=== PATIENT | female | born 1940 | race Caucasian/White ===

== ENCOUNTER → 2017-05-13 | Outpatient (CLI) | payer MEDICARE, OTHER ==
[2017-05-13 11:05] LABS: ALANINE AMINOTRANSFERASE 21 U/L (9-52); ALKALINE PHOSPHATASE 77 U/L (38-126); ANION GAP 12 (5-19); ASPARTATE AMINO TRANSFERASE 29 U/L (14-36); BILIRUBIN,DIRECT 0.5 mg/dL (0.0-0.4); BILIRUBIN,TOTAL 0.6 mg/dL (0.2-1.3); BLOOD UREA NITROGEN 21 mg/dL (7-20); CALCIUM 9.8 mg/dL (8.4-10.2); CARBON DIOXIDE 24 mmol/L (22-30); CHLORIDE 106 mmol/L (98-107); CHOLESTEROL 139.37 mg/dL (0-200); CREATININE RESULT 0.94 mg/dL (0.52-1.25); Direct HDL 59 mg/dL (>40); GLUCOSE 81 mg/dL (75-110); POTASSIUM 4.7 mmol/L (3.6-5.0); SODIUM 141.8 mmol/L (137-145); TOTAL PROTEIN 7.4 g/dL (6.3-8.2); TRIGLYCERIDES 59 mg/dL (<150)
[2017-05-13 11:16] LABS: DIRECT LDL 57 mg/dL (<100)
== END ==
LOC: OD 09:26
PROVIDERS: ATTEND Internal Medicine
DX: I25.10 Atherosclerotic heart disease of native coronary artery without angina pectoris (principal); R06.00 Dyspnea, unspecified; Z98.61 Coronary angioplasty status; I34.0 Nonrheumatic mitral (valve) insufficiency; E78.5 Hyperlipidemia, unspecified; I25.2 Old myocardial infarction; M19.90 Unspecified osteoarthritis, unspecified site; Z79.899 Other long term (current) drug therapy
CPT/HCPCS: 36415; 80053; 80061

== ENCOUNTER 2017-09-28 11:30 | Observation (INO) | payer MEDICARE, OTHER ==
[2017-09-28] MEDS ORDERED: DIPH/PERTUSS(ACELL)/TETANUS VAC/PF 0.5 ML SYR (>=10YO) IM ONE (11:47)
--- NOTE | 2017-09-28 11:49 | ER Document Report ---
ED Medical Screen (RME) - General Chief Complaint: Leg Injury Stated Complaint: LACERATION TO LOWER RIGHT LEG Time Seen by Provider: 09/28/17 11:47 Mode of Arrival: Wheelchair Information source: Patient TRAVEL OUTSIDE OF THE [place] IN LAST 30 DAYS: No - HPI Patient complains to provider of: cut leg Onset: Just prior to arrival - pt. with laceration to R leg on vent in her home just OUTSIDE CUTTER HAND. Tet- OOD - Related Data Allergies/Adverse Reactions: cyclosporine [From Restasis] Allergy (Verified 09/28/17 11:42) BURNING latex [Latex] Adverse Reaction (Unknown, Verified 09/28/17 11:42) Generalized Itching sulfamethoxazole [From Bactrim] Adverse Reaction (Unknown, Verified 09/28/17 11: 42) Swelling of the Eyes trimethoprim [From Bactrim] Adverse Reaction (Unknown, Verified 09/28/17 11:42) Swelling of the Eyes Past Medical History - Social History Chew tobacco use (# tins/day): No Frequency of alcohol use: None Drug Abuse: None - Past Medical History Cardiac Medical History: Reports: Hx Heart Attack - STENT X1 PLACED IN 2005/ MILD [place] APPROX 15YRS AGO, Hx Hypertension - MEDICATED Pulmonary Medical History: Denies: Hx Asthma Neurological Medical History: Denies: Hx Cerebrovascular Accident, Hx Seizures Renal/ Medical History: Denies: Hx Peritoneal Dialysis GI Medical History: Denies: Hx Hepatitis, Hx Hiatal Hernia, Hx Ulcer Infectious Medical History: Denies: Hx Hepatitis Past Surgical History: Reports: Hx Hysterectomy, Hx Mastectomy - RT BREAST WITH RESTRICTIONS TO RT SIDE. Denies: Hx Open Heart Surgery, Hx Pacemaker Physical Exam - Vital signs Vitals: Temp Pulse Resp BP Pulse Ox 98.9 F 63 16 167/68 H 98 09/28/17 11:36 09/28/17 11:36 09/28/17 11:36 09/28/17 11:36 09/28/17 11:36 Course - Vital Signs Vital signs: Temp Pulse Resp BP Pulse Ox 98.9 F 63 16 167/68 H 98 09/28/17 11:36 09/28/17 11:36 09/28/17 11:36 09/28/17 11:36 09/28/17 11:36
[2017-09-28] MEDS ORDERED: LIDOCAINE 1% INJ-PF (10 MG/ML) 30 ML SDV INFIL ONE (12:18)
--- NOTE | 2017-09-28 12:35 | RADIOLOGY REPORT (SQ) ---
EXAM DESCRIPTION: TIBIA FIBULA RIGHT COMPLETED DATE/TIME: 09/28/2017 12:20 pm REASON FOR STUDY: fall injury COMPARISON: None. NUMBER OF VIEWS: Two views. TECHNIQUE: Two radiographic images acquired of the right tibia and fibula to include the knee and an kle in at least one projection. LIMITATIONS: None. FINDINGS: MINERALIZATION: Normal. BONES: No acute fracture or dislocation. Knee prosthesis. No worrisome bone lesions. SOFT TISSUES: Soft tissue injury. No foreign body. OTHER: No other significant finding. IMPRESSION: SOFT TISSUE INJURY. NO RADIOPAQUE FOREIGN BODY. KNEE PROSTHESIS. NO ACUTE BONY FINDIN GS. TECHNICAL DOCUMENTATION: JOB ID: [id number] [employer]- All Rights Reserved
[2017-09-28] MEDS ORDERED: LIDOCAINE 1% INJ-PF (10 MG/ML) 30 ML SDV ONE (12:46)
[2017-09-28] MEDS ORDERED: HYDROCODONE/ACETAMINOPHEN 5-325 MG TABLET PO ONE (12:47)
[2017-09-28] MEDS ORDERED: ONDANSETRON HCL 8 MG TABLET PO ONE (12:47)
--- NOTE | 2017-09-28 12:47 | ER Document Report ---
ED General - General Chief Complaint: Leg Injury Stated Complaint: LACERATION TO LOWER RIGHT LEG Time Seen by Provider: 09/28/17 11:47 Mode of Arrival: Wheelchair Information source: Patient Notes: 77-year-old female presents with complaints of laceration to the right leg just prior to arrival. Patient notes she fell through a vent and lacerated her leg. pt able to ambulate, tetanus is not up to date TRAVEL OUTSIDE OF THE [place] IN LAST 30 DAYS: No - HPI Onset: Just prior to arrival Onset/Duration: Sudden Quality of pain: Sharp Severity: Moderate Pain Level: 4 Associated symptoms: Other Exacerbated by: Movement, Walking Relieved by: Denies Similar symptoms previously: No Recently seen / treated by doctor: No - Related Data Allergies/Adverse Reactions: cyclosporine [From Restasis] Allergy (Verified 09/28/17 11:42) BURNING latex [Latex] Adverse Reaction (Unknown, Verified 09/28/17 11:42) Generalized Itching sulfamethoxazole [From Bactrim] Adverse Reaction (Unknown, Verified 09/28/17 11: 42) Swelling of the Eyes trimethoprim [From Bactrim] Adverse Reaction (Unknown, Verified 09/28/17 11:42) Swelling of the Eyes Past Medical History - General Information source: Patient - Social History Smoking Status: Never Smoker Cigarette use (# per day): No Chew tobacco use (# tins/day): No Smoking Education Provided: No Frequency of alcohol use: None Drug Abuse: None Family History: Reviewed & Not Pertinent Patient has suicidal ideation: No Patient has homicidal ideation: No - Past Medical History Cardiac Medical History: Reports: Hx Heart Attack - STENT X1 PLACED IN 2005/ MILD [place] APPROX 15YRS AGO, Hx Hypertension - MEDICATED Pulmonary Medical History: Denies: Hx Asthma Neurological Medical History: Denies: Hx Cerebrovascular Accident, Hx Seizures Renal/ Medical History: Denies: Hx Peritoneal Dialysis GI Medical History: Denies: Hx Hepatitis, Hx Hiatal Hernia, Hx Ulcer Infectious Medical History: Denies: Hx Hepatitis Past Surgical History: Reports: Hx Hysterectomy, Hx Mastectomy - RT BREAST WITH RESTRICTIONS TO RT SIDE. Denies: Hx Open Heart Surgery, Hx Pacemaker Review of Systems - Review of Systems Notes: REVIEW OF SYSTEMS: CONSTITUTIONAL : Denies fever, chills, or sweats. Denies recent illness. EENT: Denies eye, ear, throat, or mouth pain or symptoms. Denies nasal or sinus congestion or discharge. Denies throat, tongue, or mouth swelling or difficulty swallowing. CARDIOVASCULAR: Denies chest pain. Denies palpitations or racing or irregular heart beat. Denies ankle edema. RESPIRATORY: Denies cough, cold, or chest congestion. Denies shortness of breath, difficulty breathing, or wheezing. GASTROINTESTINAL: Denies abdominal pain or distention. Denies nausea, vomiting , or diarrhea. Denies blood in vomitus, stools, or per rectum. Denies black, tarry stools. Denies constipation. GENITOURINARY: Denies difficulty urinating, painful urination, burning, frequency, blood in urine, or discharge. FEMALE GENITOURINARY: Denies vaginal bleeding, heavy or abnormal periods, irregular periods. Denies vaginal discharge or odor. MUSCULOSKELETAL: laceration leg SKIN: Denies rash, lesions or sores. HEMATOLOGIC : Denies easy bruising or bleeding. LYMPHATIC: Denies swollen, enlarged glands. NEUROLOGICAL: Denies confusion or altered mental status. Denies passing out or loss of consciousness. Denies dizziness or lightheadedness. Denies headache. Denies weakness or paralysis or loss of use of either side. Denies problems with gait or speech. Denies sensory loss, numbness, or tingling. Denies seizures. PSYCHIATRIC: Denies anxiety or stress. Denies depression, suicidal ideation, or homicidal ideation. ALL OTHER SYSTEMS REVIEWED AND NEGATIVE. PHYSICAL EXAMINATION: GENERAL: Well-appearing, well-nourished and in no acute distress. HEAD: Atraumatic, normocephalic. EYES: Pupils equal round and reactive to light, extraocular movements intact, conjunctiva are normal. ENT: Nares patent, oropharynx clear without exudates. Moist mucous membranes. NECK: Normal range of motion, supple without lymphadenopathy LUNGS: Breath sounds clear to auscultation bilaterally and equal. No wheezes rales or rhonchi. HEART: Regular rate and rhythm without murmurs ABDOMEN: Soft, nontender, nondistended abdomen. No guarding, no rebound. No masses appreciated. Female : deferred Musculoskeletal: Normal range of motion, no pitting or edema. No cyanosis. NEUROLOGICAL: Cranial nerves grossly intact. Normal speech, normal gait. Normal sensory, motor exams PSYCH: Normal mood, normal affect. SKIN: extensive laceration right thigh approximately 20 cm in length including fascia muscle small arterial bleed Dictation was performed using [employer] voice recognition software Physical Exam - Vital signs Vitals: Temp Pulse Resp BP Pulse Ox 98.9 F 63 16 167/68 H 98 09/28/17 11:36 09/28/17 11:36 09/28/17 11:36 09/28/17 11:36 09/28/17 11:36 Course - Re-evaluation Re-evalutation: 09/28/17 12:47 Dr John sorenson 09/28/17 15:38 Area was anesthetized by myself, I cleansed it but the laceration was extensive , I did contact the surgeon who will take the patient to the operating room for further repair. I believe this is appropriate given how large it is - Vital Signs Vital signs: Temp Pulse Resp BP Pulse Ox 98.3 F 70 18 134/79 H 97 09/28/17 13:29 09/28/17 13:29 09/28/17 14:02 09/28/17 14:02 09/28/17 14:02 - Laboratory Result Diagrams: 09/28/17 13:55 09/28/17 13:55 Laboratory results interpreted by me: 09/28/17 09/28/17 13:55 13:55 RBC 3.39 L Hgb 10.2 L Hct 30.8 L RDW 14.4 H Sodium 136.0 L BUN 26 H Creatinine 1.42 H Est GFR ( Amer) 43 L Est GFR (Non-Af Amer) 36 L - Diagnostic Test Radiology reviewed: Image reviewed, Reports reviewed Discharge - Discharge Clinical Impression: Leg laceration Qualifiers: Encounter type: initial encounter Laterality: right Qualified Code(s): S81.811A - Laceration without foreign body, right lower leg, initial encounter Condition: Stable Disposition: SAME DAY SURGERY Admitting Provider: Surgicalist Unit Admitted: Surgical Floor
[2017-09-28] MEDS ORDERED: CEFAZOLIN 2 GM/D5W RTU 2 GM/50 ML RTUPB IV ONE (13:33)
[2017-09-28] MEDS ORDERED: NORMAL SALINE 1000 ML 1,000 ML IV ONE (13:34)
[2017-09-28 14:21] LABS: ABSOLUTE EOSINOPHILS # (AUTO) 0.4 10^3/uL (0.0-0.6); ABSOLUTE LYMPHOCYTES (AUTO) 1.4 10^3/uL (0.5-4.7); ABSOLUTE MONOCYTES (AUTO) 0.8 10^3/uL (0.1-1.4); ABSOLUTE NEUT (AUTO) 5.9 10^3/uL (1.7-8.2); BASOPHILS % (AUTO) 0.5 % (0-2); EOSINOPHILS % (AUTO) 4.2 % (0-6); HEMATOCRIT 30.8 % (36.0-47.0); HEMOGLOBIN 10.2 g/dL (12.0-15.5); LYMPHOCYTES % (AUTO) 16.2 % (13-45); MEAN CORPUSCULAR HEMOGLOBIN 30.2 pg (27.0-33.4); MEAN CORPUSCULAR HGB CONC 33.1 g/dL (32.0-36.0); MEAN CORPUSCULAR VOLUME 91 fl (80-97); MONOCYTES % (AUTO) 9.1 % (3-13); PLATELET COUNT 173 10^3/uL (150-450); RED BLOOD COUNT 3.39 10^6/uL (3.72-5.28); RED CELL DISTRIBUTION WIDTH 14.4 % (11.5-14.0); TOTAL CELLS COUNTED % (AUTO) 100 %; WHITE BLOOD COUNT 8.4 10^3/uL (4.0-10.5)
[2017-09-28 14:44] LABS: ALANINE AMINOTRANSFERASE 27 U/L (9-52); ALBUMIN 3.5 g/dL (3.5-5.0); ALKALINE PHOSPHATASE 74 U/L (38-126); ANION GAP 7 (5-19); ASPARTATE AMINO TRANSFERASE 26 U/L (14-36); BILIRUBIN,DIRECT 0.4 mg/dL (0.0-0.4); BILIRUBIN,TOTAL 0.4 mg/dL (0.2-1.3); BLOOD UREA NITROGEN 26 mg/dL (7-20); CALCIUM 9.4 mg/dL (8.4-10.2); CARBON DIOXIDE 25 mmol/L (22-30); CHLORIDE 104 mmol/L (98-107); GLUCOSE 96 mg/dL (75-110); TOTAL PROTEIN 6.5 g/dL (6.3-8.2)
[2017-09-28] MEDS ORDERED: MIDAZOLAM 2 MG/2 ML INJ ONE (15:52)
[2017-09-28] MEDS ORDERED: BUPIVACAINE HCL 0.25 % INJ/PF (2.5 MG/1 ML) 30 ML VIAL ONE (15:52)
[2017-09-28] MEDS ORDERED: PROPOFOL INJ 200 MG/20 ML VIAL IV ONE (15:52)
[2017-09-28] MEDS ORDERED: DIPHENHYDRAMINE HCL 50 MG/ML VIAL IV PRN (16:25)
[2017-09-28] MEDS ORDERED: PROMETHAZINE HCL INJ 25 MG/1 ML VIAL IV PRN (16:25)
[2017-09-28] MEDS ORDERED: MORPHINE SULFATE 10 MG/ML INJ IV PRN (16:25)
[2017-09-28] MEDS ORDERED: MEPERIDINE HCL/PF INJ 25 MG/1 ML DISP.SYRIN IV PRN (16:25)
[2017-09-28] MEDS ORDERED: FENTANYL CITRATE INJ/PF 100 MCG/2 ML AMPUL IV PRN ×2 (16:25)
[2017-09-28] MEDS: FENTANYL CITRATE INJ/PF 100 MCG/2 ML AMPUL IV PRN ×2 (17:20→17:30)
[2017-09-28] MEDS ORDERED: FENTANYL CITRATE INJ/PF 100 MCG/2 ML AMPUL ONE (17:22)
[2017-09-28] MEDS ORDERED: MEPERIDINE HCL/PF INJ 25 MG/1 ML DISP.SYRIN ONE (17:34)
[2017-09-28] MEDS ORDERED: DOCUSATE SODIUM 100 MG CAPSULE PO PRN (17:58)
[2017-09-28] MEDS ORDERED: (PENDING PHARMACY ID) (Polyvinyl Alcohol/Povidone/Pf [Refresh Classic Eye Drops] 1 DROP) OU PRN (17:58)
--- NOTE | 2017-09-28 18:08 | OPERATIVE REPORT E ---
Operative Report NAME: MARCO A CATALAN : 1940 AGE: 77Y DATE OF SURGERY: 09/28/2017 ROOM: ED20 PREOPERATIVE DIAGNOSIS: FALL WITH LARGE LACERATION OF THE LEFT LEG, CONTAMINATED POSSIBLY, AND DEEP, UP TO THE FASCIAL LEVEL, WITH DEGLOVING OF THE SKIN. POSTOPERATIVE DIAGNOSIS: FALL WITH LARGE LACERATION OF THE LEFT LEG, DEEP, UP TO THE FASCIAL LEVEL, WITH DEGLOVING OF THE SKIN AND CONTAMINATION OF THE 20-CM WOUND OF THE POSTEROLATERAL ASPECT OF THE MIDDLE PART OF THE LEFT LEG, BUT NO BONY INJURY. OPERATION: Large wound debridement, left leg, along with washout, and layered closure of the large laceration of the left middle leg. It was a 2-layered closure. SURGEON: SHAKIRA GALICIA M.D. ANESTHESIA: Monitored anesthesia care. ESTIMATED BLOOD LOSS: Less than 10 mL. SPECIMENS: None. HISTORY/INDICATIONS: As described. PROCEDURE: Patient was placed in the supine position. The lower extremity on the left side was cleaned, prepped and draped for a sterile field. After that, the nonviable adipose tissue/necrotic tissue was debrided up to the fascial level as needed. Two-thirds of the skin was viable. One-third or maybe 2 cm of the skin appeared to be more degloved. By using a Pulsevac with dilute Betadine solution, thoroughly washed and hemostasis secured. Then layered closure was done, initially with the fascial layer. The fascia was reapproximated with 2-0 Vicryl and then the deep subcutaneous layer with 2-0 Vicryl and 3-0 Vicryl interrupted skin closure. Only 2-cm part of the skin which was very cleaned out was degloved . Part of this area was left open. Dressings were applied. Patient tolerated procedure well and taken to recovery room in stable condition. DICTATING PHYSICIAN: SHAKIRA GALICIA M.D. [id number] PHY#: [id number] ID: [id number] JOB#: [id number] ACCT: [id number] cc:SHAKIRA GALIICA M.D. > [facility]
--- NOTE | 2017-09-28 18:14 | HISTORY AND PHYSICAL E ---
History and Physical NAME: MARCO A CATALAN : 1940 AGE: 77Y ADMITTED: 09/28/2017 ROOM: ED20 HISTORY OF PRESENT ILLNESS: This is a 77-year-old female patient presented to the emergency room with a history of fall and sustained a large laceration to the right leg anterolateral aspect. The patient came to the emergency room bleeding. The ER physician called me to evaluate the wound for management. The patient complains of some pain. PAST MEDICAL HISTORY: History of hypothyroidism, hypertension, hypercholesterolemia. SURGICAL HISTORY: No major surgeries in the past. REVIEW OF SYSTEMS: As per examination. PHYSICAL EXAMINATION: GENERAL: The patient is awake, alert, oriented. HEAD AND NECK: No lymphadenopathy, no masses. CHEST: Both lungs are clear to auscultation. CARDIOVASCULAR: Heart sounds are regular, no murmurs, no gallops. ABDOMEN: Soft, nontender, no masses palpable. EXTREMITIES: Right lower extremity; there is a large about a 20-25 cm laceration in the right anterolateral aspect of the right leg with some of the skin and also the laceration was extending up to the fascia level. There is minimal amount of bleeding from that area. Pedal pulses are palpable and she still has the sensations. IMAGING STUDIES: She had an x-ray done, so far no fractures were seen. IMPRESSION OVERALL: Large soft tissue injury of the right leg with some of the skin degloved and also a very deep laceration, possible contamination. PLAN: Start IV antibiotic and then take her to the operating room for wound debridement, wound wash, and a possible partial layered closure. DICTATING PHYSICIAN: SHAKIRA GALICIA M.D. [id number] PHY#: [id number] ID: [id number] JOB#: [id number] ACCT: [id number] cc:Kalen POSEY M.D. > [facility]
[2017-09-28] MEDS ORDERED: POLYVINYL ALCOHOL 1.4% OPH SOLN 15 ML OU PRN (18:16)
[2017-09-28] MEDS ORDERED: HYDROCODONE/ACETAMINOPHEN 5-325 MG TABLET PO PRN (18:18)
[2017-09-28] MEDS ORDERED: HYDROMORPHONE HCL INJ/PF 2 MG/ML AMPULE IV PRN (18:18)
[2017-09-28] MEDS: FAMOTIDINE 20 MG TABLET PO SCH (18:47)
[2017-09-28] MEDS: CALCIUM CARBONATE 250 MG/VITAMIN D3 125 UNIT TABLET PO SCH (18:47)
[2017-09-28] MEDS ORDERED: LOSARTAN POTASSIUM 50 MG TABLET PO SCH (22:00)
[2017-09-28] MEDS ORDERED: METOPROLOL SUCCINATE 50 MG TAB.SR.24H PO SCH (22:00)
[2017-09-28] MEDS ORDERED: SIMVASTATIN 40 MG TABLET PO SCH (22:00)
[2017-09-28] MEDS ORDERED: ASPIRIN 81 MG TABLET, ENT COATED PO SCH (22:00)
[2017-09-28] MEDS: CEFAZOLIN 2 GM/D5W RTU 2 GM/50 ML RTUPB IV SCH (23:24)
[2017-09-28] MEDS ORDERED: NORMAL SALINE 500 ML IV ONE (23:45)
[2017-09-29] MEDS: CEFAZOLIN 2 GM/D5W RTU 2 GM/50 ML RTUPB IV SCH ×2 (05:11→12:02)
[2017-09-29] MEDS ORDERED: LEVOTHYROXINE SODIUM 0.1 MG TABLET PO SCH (06:00)
[2017-09-29] MEDS ORDERED: ASPIRIN 81 MG TABLET, ENT COATED PO SCH (10:00)
[2017-09-29] MEDS ORDERED: (PENDING PHARMACY ID) (Telmisartan [Micardis 80 Mg Tablet] 80 MG) PO SCH (10:00)
[2017-09-29] MEDS ORDERED: LACTOBACILLUS ACIDOPHILUS 250 MG TAB PO SCH (10:00)
[2017-09-29] MEDS ORDERED: METOPROLOL SUCCINATE 50 MG TAB.SR.24H PO SCH (10:00)
[2017-09-29] MEDS ORDERED: LOSARTAN POTASSIUM 50 MG TABLET PO SCH (10:00)
[2017-09-29] MEDS ORDERED: LORATADINE 10 MG TABLET PO SCH (10:00)
[2017-09-29] MEDS ORDERED: MELOXICAM 15 MG TABLET PO SCH (10:00)
[2017-09-29] MEDS ORDERED: MULTIVITAMIN TABLET PO SCH (10:00)
[2017-09-29] MEDS: FAMOTIDINE 20 MG TABLET PO SCH (10:40)
[2017-09-29] MEDS: CALCIUM CARBONATE 250 MG/VITAMIN D3 125 UNIT TABLET PO SCH (10:41)
[2017-09-29 11:56] VITALS: BP 120/62
--- NOTE | 2017-09-29 12:48 | PDOC DISCHARGE SUMMARY ---
General - Admit/Disc Date/PCP Admission Date/Primary Care Provider: 09/28/17 18:30 MARNIE BYRNES MD Discharge Date: 09/29/17 - Discharge Diagnosis (1) Laceration of right leg excluding thigh Is this a current diagnosis for this admission?: Yes (2) Leg laceration Is this a current diagnosis for this admission?: Yes - Additional Information Resuscitation Status: Full Code Discharge Diet: As Tolerated, Regular Discharge Activity: Activity As Tolerated Home Medications: Aspirin [Adult Low Dose Aspirin EC] 81 mg PO DAILY 09/28/17 Calcium Carbonate/Vitamin D3 [Calcium 500 + Vit D Caplet] 1 tab PO BID 09/28/17 Docusate Sodium [Colace 100 mg Capsule] 100 mg PO BIDP PRN 09/28/17 Famotidine [Pepcid 20 mg Tablet] 20 mg PO BID 09/28/17 Immun Glob G(IgG)/Pro/Iga 0-50 [Hizentra 10 Gram/50 ml Vial] 0 gm SQ GUTIERREZ L.acidoph,Paracasei, B.lactis [Probiotic] 1 cap PO DAILY 09/28/17 Levothyroxine Sodium [Synthroid] 100 mcg PO Q6AM 09/28/17 Loratadine [Claritin 10 mg Tablet] 10 mg PO DAILY 09/28/17 Meloxicam [Mobic] 15 mg PO DAILY 09/28/17 Metoprolol Succinate [Toprol Xl 50 mg Tab.sr] 50 mg PO DAILY 09/28/17 Multivitamin [Daily Multiple Vitamin] 1 tab PO DAILY 09/28/17 Olopatadine HCl [Pataday] 1 drop OU DAILY 09/28/17 Polyvinyl Alcohol/Povidone/Pf [Refresh Classic Eye Drops] 1 drop OU Q4HP PRN 07/05 Simvastatin [Zocor 40 mg Tablet] 40 mg PO QHS 09/28/17 Telmisartan [Micardis 80 mg Tablet] 80 mg PO DAILY 09/28/17 History of Present Illness History of Present Illness: MARCO A CATALAN is a 77 year old female who was admitted yesterday to the surgicalist service following repair of a complex right leg laceration. She had fallen through a vent in the floor of their mobile and sustained the laceration with some degloving. She had a washout and suture repair of the laceration, which was about 20-25cm long, in the OR. Hospital Course Hospital Course: She had a washout and suture repair of the laceration, which was about 20-25cm long, in the OR. She is stable and is being discharged home. Physical Exam Vital Signs: Temp Pulse Resp BP Pulse Ox 98.0 F 69 16 120/62 97 09/29/17 11:53 09/29/17 11:53 09/29/17 11:53 09/29/17 11:53 09/29/17 11:53 Intake & Output 09/28/17 09/29/17 09/30/17 06:59 06:59 06:59 Intake Total 100 Balance 100 General appearance: PRESENT: no acute distress, well-developed, well-nourished Head exam: PRESENT: atraumatic, normocephalic Eye exam: PRESENT: conjunctiva pink, EOMI, PERRLA. ABSENT: scleral icterus Ear exam: PRESENT: normal external ear exam Neck exam: PRESENT: carotid bruit. ABSENT: JVD, lymphadenopathy, thyromegaly Respiratory exam: PRESENT: clear to auscultation juancarlos. ABSENT: rales, rhonchi, wheezes Cardiovascular exam: PRESENT: RRR. ABSENT: diastolic murmur, rubs, systolic murmur GI/Abdominal exam: PRESENT: normal bowel sounds, soft. ABSENT: distended, guarding, mass, organolmegaly, rebound, tenderness Extremities exam: PRESENT: other - Sutured laceration of the right leg with interrupted stitches. Laceration is about 20-25cm long and is curved at the inferior end posteriorly for about 5cm Neurological exam: PRESENT: alert, awake, oriented to person, oriented to place , oriented to time, oriented to situation, CN II-XII grossly intact. ABSENT: motor sensory deficit Psychiatric exam: PRESENT: appropriate affect, normal mood. ABSENT: homicidal ideation, suicidal ideation Results Impressions: Tibia/Fibula X-Ray 09/28/17 12:03 IMPRESSION: SOFT TISSUE INJURY. NO RADIOPAQUE FOREIGN BODY. KNEE PROSTHESIS. NO ACUTE BONY FINDINGS. Plan Discharge Plan: discharge home Time Spent: Less than 30 Minutes
== END 2017-09-29 15:49 | disposition home or self-care (01) ==
LOC: ER 11:30 → UNDOADMOB 14:41 → EH 14:41 → 2N 18:30 → EH 18:30
PROVIDERS: ATTEND Colon & Rectal Surgery
PROC: 0JQN0ZZ Repair Right Lower Leg Subcutaneous Tissue and Fascia, Open Approach (ICD-10-PCS; principal; 2017-09-28 16:00)
DX: S81.821A Laceration with foreign body, right lower leg, initial encounter (principal); W13.8XXA Fall from, out of or through other building or structure, initial encounter; Y92.029 Unspecified place in mobile home as the place of occurrence of the external cause; E03.9 Hypothyroidism, unspecified; I10 Essential (primary) hypertension; E78.00 Pure hypercholesterolemia, unspecified; Z79.82 Long term (current) use of aspirin; Z79.899 Other long term (current) drug therapy; Z23 Encounter for immunization; Z95.5 Presence of coronary angioplasty implant and graft
CPT/HCPCS: 99284; 90471; 36415; 85025; 80053; 73590; 90715; 12035; G0378 ×3; A9270 ×11; J2250; J3490; J3010; J2175; J7030; J7040; J2704; J0690 ×2; 00400; S0119

== ENCOUNTER → 2018-06-25 | Outpatient (CLI) | payer MEDICARE, OTHER ==
[2018-06-25 08:42] LABS: ABSOLUTE EOSINOPHILS # (AUTO) 0.4 10^3/uL (0.0-0.6); ABSOLUTE LYMPHOCYTES (AUTO) 1.3 10^3/uL (0.5-4.7); ABSOLUTE MONOCYTES (AUTO) 0.8 10^3/uL (0.1-1.4); ABSOLUTE NEUT (AUTO) 4.6 10^3/uL (1.7-8.2); BASOPHILS % (AUTO) 0.6 % (0-2); EOSINOPHILS % (AUTO) 6.1 % (0-6); HEMATOCRIT 34.5 % (36.0-47.0); HEMOGLOBIN 11.8 g/dL (12.0-15.5); LYMPHOCYTES % (AUTO) 18.5 % (13-45); MEAN CORPUSCULAR HEMOGLOBIN 30.6 pg (27.0-33.4); MEAN CORPUSCULAR HGB CONC 34.3 g/dL (32.0-36.0); MEAN CORPUSCULAR VOLUME 89 fl (80-97); PLATELET COUNT 185 10^3/uL (150-450); RED BLOOD COUNT 3.86 10^6/uL (3.72-5.28); RED CELL DISTRIBUTION WIDTH 14.9 % (11.5-14.0); SEGMENTED NEUTROPHILS % (AUTO) 63.8 % (42-78); TOTAL CELLS COUNTED % (AUTO) 100 %; WHITE BLOOD COUNT 7.1 10^3/uL (4.0-10.5)
[2018-06-25 09:07] LABS: BLOOD UREA NITROGEN 20 mg/dL (7-20); CALCIUM 9.8 mg/dL (8.4-10.2); GLUCOSE 97 mg/dL (75-110)
[2018-06-25 09:08] LABS: ALANINE AMINOTRANSFERASE 17 U/L (9-52); ALBUMIN 4.1 g/dL (3.5-5.0); ALKALINE PHOSPHATASE 82 U/L (38-126); ANION GAP 15 (5-19); ASPARTATE AMINO TRANSFERASE 25 U/L (14-36); BILIRUBIN,DIRECT 0.2 mg/dL (0.0-0.4); BILIRUBIN,TOTAL 0.5 mg/dL (0.2-1.3); C-REACTIVE PROTEIN 17.3 mg/L (<10.0); CARBON DIOXIDE 23 mmol/L (22-30); CHLORIDE 105 mmol/L (98-107); POTASSIUM 5.1 mmol/L (3.6-5.0); SODIUM 142.6 mmol/L (137-145); TOTAL PROTEIN 7.2 g/dL (6.3-8.2)
[2018-06-25 09:31] LABS: ERYTHROCYTE SEDIMENTATION RATE 78 mm/hr (0-30)
--- NOTE | 2018-06-25 13:16 | XCELERA REPORT ---
[address] [address] Lower Extremity Venous Evaluation Procedure: A bilateral duplex scan of the lower extremity veins was performed. The evaluation included responses to compression and other maneuvers with patient in the supine and standing positions to assess venous insufficiency. Right Sided Venous Evaluation Deep venous system evaluation shows patent veins with no obstruction or significant reflux identified. Saphena Femoral junction: no reflux. Femoral vein reflux: no reflux. Greater Saphenous vein, Proximal thigh: reflux: 3.1 seconds, 3.7 mm diameter. Greater Saphenous vein, Mid thigh: reflux: 1.6 seconds, 3.0 mm diameter. Greater Saphenous vein, Distal thigh: reflux: 0.7 seconds.3.9 mm. Greater Saphenous vein, Proximal below knee: reflux: no reflux . No significant Perforators identified. Left Sided Venous Evaluation Deep venous system evaluatiion shows patent veins with no obstruction or significant reflux identified. Sapheno Femoral junction: no reflux. Femoral vein reflux: no reflux. Greater Saphenous vein, Proximal thigh: reflux: no reflux. Greater Saphenous vein, Distal thigh: reflux: no reflux. Greater Saphenous vein, Proximal below knee: reflux: no reflux. No significant Perforators identified. Interpretation Summary No duplex evidence of DVT or obstruction in the bilateral lower extremities. Significant superficial reflux noted in the right Greater Saphenous vein. Normal otherwise. Unexpected as indicated ulceration in left calf. Name: MARCO A CATALAN Age: 78 yrs Gender: Female : 1940 Patient Status: Outpatient Patient Location: Study Date: 06/25/2018 09:45 AM Reason For Study: ULCER Ordering Physician: HAMLET TAI Performed By: Chase Freeman : HAMLET TAI > Hu Gandhi
--- NOTE | 2018-06-25 16:52 | XCELERA REPORT ---
[address] [address] Lower Extremity Arterial Evaluation Name: MARCO A CATALAN Age: 78 yrs Gender: Female : 1940 Patient Status: Outpatient Patient Location: Study Date: 06/25/2018 09:10 AM Procedure: A color flow and duplex scan of the lower extremity arteries was performed bilaterally with velocity and waveform anaylsis. Reason For Study: ULCER Ordering Physician: HAMLET TAI Performed By: Chase Freeman Measurements and Calculations Right Left GRADUATE TEACHING ASSOCIATE PSV 126.0 148.0 cm/sec Prox PFA PSV -126.0 -120.1cm/sec Prox SFA PSV -94.8 101.5 cm/sec Mid SFA PSV -123.0 -106.6cm/sec Dist SFA PSV -102.6 -75.1 cm/sec Prox Pop A PSV 91.7 66.4 cm/sec Prox VALERIA PSV 29.0 cm/sec Dist VALERIA PSV 28.5 cm/sec Dist OFFICE MESSENGER PSV 77.4 75.8 cm/sec Montrell Pedis PSV 14.5 46.5 cm/sec Right Side Arterial Evaluation Normal velocity and triphasic waveforms noted from the Common Femoral artery to the Posterior Tibial artery. Biphasic,decreased velocity in the Anterior Tibial, retrograde in the Dorsalis pedis . 20-49 % stenosis at the Anterior Tibial artery. Ankle Brachial index not done, patient unable to tolerate compression.. Left Side Arterial Evaluation Normal velocity and triphasic waveforms noted from the Common Femoral artery to the infrageniculate vessels. 0 % stenosis noted. Ankle Brachial index was not obtainable, patient discomfort.. Interpretation Summary Mild hemodynamically significant lesions in the right lower extremity only, on duplex imaging, at rest. No hemodynamically significant lesions in the left lower extremity only, on duplex imaging, at rest. : HAMLET TAI > Hu Gandhi
== END ==
LOC: SP 08:17
PROVIDERS: ATTEND Nurse Practitioner
DX: L97.212 Non-pressure chronic ulcer of right calf with fat layer exposed (principal)
CPT/HCPCS: 36415; 80053; 85025; 85652; 86140; 93925; 93970

== ENCOUNTER → 2018-08-31 | Outpatient (CLI) | payer MEDICARE, OTHER ==
--- NOTE | 2018-08-31 13:17 | RADIOLOGY REPORT (SQ) ---
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 NUMBER OF VIEWS: Two views. TECHNIQUE: Two radiographic images acquired of the right tibia and fibula to include the knee and an kle in at least one projection. LIMITATIONS: None. FINDINGS: MINERALIZATION: Normal. BONES: Right knee arthroplasty. No fracture or worrisome bone lesion. SOFT TISSUES: No obvious swelling or foreign body. OTHER: No other significant finding. IMPRESSION: NEGATIVE STUDY OF THE RIGHT TIBIA AND FIBULA. NO RADIOGRAPHIC EVIDENCE OF ACUTE INJURY. TECHNICAL DOCUMENTATION: JOB ID: [id number] [employer]- All Rights Reserved Reading location - IP/workstation name: [email or web address]
[2018-08-31 13:50] LABS: ABSOLUTE EOSINOPHILS # (AUTO) 0.3 10^3/uL (0.0-0.6); ABSOLUTE LYMPHOCYTES (AUTO) 1.3 10^3/uL (0.5-4.7); ABSOLUTE MONOCYTES (AUTO) 0.7 10^3/uL (0.1-1.4); ABSOLUTE NEUT (AUTO) 3.5 10^3/uL (1.7-8.2); BASOPHILS % (AUTO) 0.7 % (0-2); HEMATOCRIT 34.3 % (36.0-47.0); HEMOGLOBIN 11.5 g/dL (12.0-15.5); LYMPHOCYTES % (AUTO) 22.8 % (13-45); MEAN CORPUSCULAR HEMOGLOBIN 30.5 pg (27.0-33.4); MEAN CORPUSCULAR HGB CONC 33.4 g/dL (32.0-36.0); MEAN CORPUSCULAR VOLUME 91 fl (80-97); MONOCYTES % (AUTO) 11.7 % (3-13); PLATELET COUNT 169 10^3/uL (150-450); RED BLOOD COUNT 3.76 10^6/uL (3.72-5.28); RED CELL DISTRIBUTION WIDTH 15.5 % (11.5-14.0); SEGMENTED NEUTROPHILS % (AUTO) 59.8 % (42-78); TOTAL CELLS COUNTED % (AUTO) 100 %; WHITE BLOOD COUNT 5.8 10^3/uL (4.0-10.5)
[2018-08-31 14:14] LABS: ALANINE AMINOTRANSFERASE 17 U/L (9-52); ALBUMIN 4.1 g/dL (3.5-5.0); ALKALINE PHOSPHATASE 65 U/L (38-126); ANION GAP 7 (5-19); ASPARTATE AMINO TRANSFERASE 30 U/L (14-36); BILIRUBIN,DIRECT 0.4 mg/dL (0.0-0.4); BILIRUBIN,TOTAL 0.4 mg/dL (0.2-1.3); BLOOD UREA NITROGEN 21 mg/dL (7-20); CALCIUM 9.3 mg/dL (8.4-10.2); CARBON DIOXIDE 27 mmol/L (22-30); CHLORIDE 105 mmol/L (98-107); GLUCOSE 76 mg/dL (75-110); POTASSIUM 4.5 mmol/L (3.6-5.0); SODIUM 139.2 mmol/L (137-145); TOTAL PROTEIN 7.1 g/dL (6.3-8.2)
[2018-08-31 14:33] LABS: ERYTHROCYTE SEDIMENTATION RATE 45 mm/hr (0-30)
== END ==
LOC: RAD 12:15
PROVIDERS: ATTEND Nurse Practitioner
DX: L97.212 Non-pressure chronic ulcer of right calf with fat layer exposed (principal)
CPT/HCPCS: 36415; 80053; 85025; 85652; 86140